=== PATIENT | male | born 1990 | race Caucasian/White ===

== ENCOUNTER 2017-04-17 17:12 | Emergency (ER) | payer SELFPAY ==
[~2017-04-17] VITALS: Ht 180.3 cm; Wt 115.1 kg
[2017-04-17 17:17] VITALS: BP 152/91
== END 2017-04-17 18:23 | disposition home or self-care (01) ==
LOC: ED 18:00
DX: L20.9 Atopic dermatitis, unspecified (principal); B35.9 Dermatophytosis, unspecified
CPT/HCPCS: 99282

== ENCOUNTER 2018-08-20 22:52 | Emergency (ER) | payer OTHER ==
[~2018-08-20] VITALS: Ht 182.9 cm; Wt 117.1 kg
[2018-08-20 22:53] VITALS: BP 156/88
--- NOTE | 2018-08-20 23:09 | NUR ---
PT IN [facility]; YVONNE GIMENEZ AT . PT DENIES ANY NEEDS AT THIS TIME AND VERBALIZES UNDERSTANDING OF POC.
--- NOTE | 2018-08-20 23:24 | NUR ---
PT D/C WITH D/C SUMMARY AND SCRIPTS. ALL QUESTIONS ANSWERED. PT AMBULATED TO REGISTRATION DESK WITH STEADY GAIT FOR D/C HOME. PT DENIES ANY OTHER NEEDS PERTAINING TO THIS VISIT.
== END 2018-08-20 23:26 | disposition home or self-care (01) ==
LOC: ED 23:21
DX: K02.9 Dental caries, unspecified (principal); H61.23 Impacted cerumen, bilateral; M10.9 Gout, unspecified
CPT/HCPCS: 99283

== ENCOUNTER 2018-12-09 11:16 | Emergency (ER) | payer MEDICAID ==
[~2018-12-09] VITALS: Ht 180.3 cm; Wt 117.9 kg
[2018-12-09 11:21] VITALS: BP 148/87
--- NOTE | 2018-12-09 12:34 | NUR ---
Patient/Caregiver given discharge instructions and they have confirmed that they understand the instructions. Patient ambulatory with steady gait.
== END 2018-12-09 12:35 | disposition home or self-care (01) ==
LOC: ED 12:27
DX: K04.7 Periapical abscess without sinus (principal); K02.9 Dental caries, unspecified; K08.89 Other specified disorders of teeth and supporting structures
CPT/HCPCS: 41800; 99283